=== PATIENT | male | born 1950 | race Caucasian/White ===

== ENCOUNTER 2022-04-13 16:20 | Emergency (ER) | payer MEDICARE ==
[~2022-04-13] VITALS: Ht 172.7 cm; Wt 76.7 kg
[2022-04-13] MEDS ORDERED: DIPHTH/TETANUS/ACEL. PERTUSSIS 0.5 ML SYR IM ONE (17:00)
[2022-04-13] MEDS ORDERED: TETANUS/DIPHTHERIA TOX ADULT 0.5 ML SYR ONE (17:06)
== END 2022-04-13 17:16 | disposition home or self-care (01) ==
LOC: FSED 16:52
DX: S01.01XA Laceration without foreign body of scalp, initial encounter (principal); I10 Essential (primary) hypertension; I25.2 Old myocardial infarction; Z23 Encounter for immunization; W20.8XXA Other cause of strike by thrown, projected or falling object, initial encounter; Z79.02 Long term (current) use of antithrombotics/antiplatelets
CPT/HCPCS: 90471; 90714; 99283